=== PATIENT | female | born 1940 | race Caucasian/White ===

== ENCOUNTER 2020-01-31 11:05 | Emergency (ER) | payer MEDICARE, SELFPAY ==
--- NOTE | ~2020-01-31 | XR_ITS ---
EXAMINATION: XR hand RT min 3V, XR wrist RT min 3V EXAM DATE: 01/31/2020 11:57 (accession [id number]), 01/31/2020 11:58 (accession [id number]) INDICATION: Initial encounter following injury, with pain of the right hand and wrist. Fell one week ago, persistent pain. TECHNIQUE: Right hand frontal, lateral and oblique projections obtained and reviewed. Right wrist fro ntal, oblique and lateral projections obtained and reviewed. There is no prior study for comparison. FINDINGS: Acute closed posttraumatic fracture of the right radial distal metaphysis with mild comminu tion, mild displacement of a posterior fragment, may also involve the articular surface at the radioc arpal joint. Carpal bones and ulna are unremarkable. 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 IMPRESSION: Right distal radial metaphyseal fracture, mild comminution and possible extension into r adiocarpal joint Reviewed, dictated and finalized at location A. IMPRESSION: Right distal radial metaphyseal fracture, mild comminution and pos sible extension into radiocarpal joint
[2020-01-31 11:12] VITALS: BP 120/68; PULSE 68; RESP 14; TEMP 37.2; O2SAT 99
--- NOTE | 2020-01-31 11:22 | ED.UPPEXIN ---
HPI - Extremity Injury (Upper) General Chief Complaint: Extremity Injury, Upper Stated Complaint: right wrist injury due to fall Time Seen by Provider: 01/31/20 11:22 Source: patient, family and RN notes reviewed History of Present Illness HPI narrative: Patient is a 79-year-old female who presents the urgent care with complaints of right hand/wrist pain. Patient is present with her spouse. Patient has been on hospice for some time due to deteriorating congestive heart failure. Spouse states that her memory has been deteriorating for some time but does seem to have been worsened in the last week since the fall. States that she went to grab onto a curtain to support her weakness, which caused her to fall to her knees. Patient states she believes she slammed her arm on the floor or possible bookcase. Spouse and patient both deny any known head injury from the fall. Spouse states that hospice was aware of the fall and has increased her morphine which she believes increased the mental status deterioration. Patient did follow-up with her PCP just prior to arrival who wanted to do an outpatient x-ray on the right hand/wrist. However, spouse refused to take her to the hospital for the x-ray. Spouse states that she will return back on hospice as soon as the treatment of the right hand/wrist has been resolved. Patient is currently alert and oriented to person and events but is slightly confused on multiple questions. Spouse is supportive. No other acute complaints. Patient and spouse aware of the plan of care. Some parts of this dictation were generated by voice recognition software and may contain typographical and/or grammatical inaccuracies. Related Data Home Medications Medication Instructions Recorded Confirmed atorvastatin 03/24/19 carvedilol 03/24/19 diltiazem HCl [DILT-XR] PO 03/24/19 gabapentin 03/24/19 hydrocodone-acetaminophen 03/24/19 venlafaxine mg PO 03/24/19 furosemide 20 mg PO DAILY 01/31/20 01/31/20 morphine concentrate 5 mg PO Q1H PRN 01/31/20 01/31/20 phytonadione (vitamin K1) 2.5 mg PO ONCE 01/31/20 01/31/20 [Mephyton] potassium chloride 10 meq PO DAILY 01/31/20 01/31/20 Allergies Allergy/AdvReac Type Severity Reaction Status Date / Time tizanidine Allergy Unknown Unknown Verified 01/31/20 11:36 Review of Systems Review of Systems: Narrative: CONSTITUTIONAL: Denies fever, chills, or sweats. EYES: Denies visual changes, redness, or discharge. ENT: Denies rhinorrhea, congestion, sore throat, or otalgia. CARDIOVASCULAR: Denies chest pain, palpitations, or edema. RESPIRATORY: Denies cough or dyspnea. GASTROINTESTINAL: Denies abdominal pain, nausea, vomiting, or diarrhea. GENITOURINARY: Denies dysuria or hematuria. SKIN: Denies rash or itching. MUSCULOSKELETAL: Reports of right hand/wrist pain and excessive bruising NEUROLOGIC: Denies headache, numbness, or weakness. All other systems reviewed are negative, except as documented in HPI. PMFSH Comments At the time of my signature, I reviewed and agree with the nursing past medical, surgical, social, and family history. There is no relevant family history pertinent to the patient complaint. Exam Narrative: Exam Narrative: GENERAL: This is a well-nourished, well-developed patient, in no apparent distress. HEAD: normocephalic, atraumatic. EYES: PERRL. Sclera clear/white. Vision is grossly intact. EARS: External ears normal NOSE: External nose normal with no obvious nasal discharge, nares without redness, no rhinorrhea. THROAT: Mucous membranes moist NECK: Neck supple SKIN: 14 inches of discolored purple/yellow/blue ecchymosis extending from the right elbow to the right hand. Warm, intact with no suspicious lesions or rash, good texture and turgor. NEURO: awake, alert, and oriented to person, place; notable signs of dementia EXTREMITIES: Possible deformity noted to the radial aspect of the right hand/wrist with angulation; mild to moderate swelling of the
== END 2020-01-31 12:52 | disposition left against medical advice (07) ==
PROVIDERS: Emergency Provider Nurse Practitioner Family; PCP Family Medicine
DX: S52.501A Unspecified fracture of the lower end of right radius, initial encounter for closed fracture (principal); W19.XXXA Unspecified fall, initial encounter; I48.91 Unspecified atrial fibrillation; I25.10 Atherosclerotic heart disease of native coronary artery without angina pectoris; E78.00 Pure hypercholesterolemia, unspecified; F32.9 Major depressive disorder, single episode, unspecified; I50.9 Heart failure, unspecified
CPT/HCPCS: 29125; 73110; 73130; 99214; A4565; G0463

== ENCOUNTER 2020-02-10 13:10 | Emergency (ER) | payer MEDICARE, SELFPAY ==
[2020-02-10 13:15] VITALS: BP 92/60; PULSE 97; RESP 20; TEMP 36.3; O2SAT 95
--- NOTE | 2020-02-10 13:26 | ECG_ITS ---
Measurements Intervals [place] Rate: 91 P: CT: 0 QRS: 44 QRSD: 90 T: -55 QT: 381 QTc: 471 Interpretive Statements ATRIAL FIBRILLATION EARLY PRECORDIAL R/S TRANSITION T WAVE ABNORMALITY IN ANTERIOR LEADS- CONSIDER ISCHEMIA BASELINE ARTIFACT- II, III, AVL, AVF, V1-V2 ABNORMAL ECG Electronically Signed On 02-11-2020 8:36:03 CDT by Chris Acosta D.O.
--- NOTE | 2020-02-10 13:46 | ED.CHESTPAIN ---
HPI - Chest Pain General Chief Complaint: Chest Pain Stated Complaint: chest pain/shortness of breath/weakness Time Seen by Provider: 02/10/20 13:10 Source: patient, family and RN notes reviewed Mode of arrival: ambulatory Limitations: no limitations History of Present Illness HPI narrative: Patient presents today with complaining of a 3-day history of sternal chest pain and shortness of breath that has been worsening since onset. Associated symptoms include bilateral lower leg edema, weakness, decreased appetite since yesterday. Patient has history of A. fib and CHF. She was just discharged from hospice related to her CHF 11 days ago. Denies history of MT or CVA. She has been using her nitroglycerin without relief. She has been taking her prescribed opiate medication with relief of symptoms. Reports her chronic chest pain is an 12/09. Denies nausea, vomiting, diarrhea, lightheadedness or dizziness, vision changes, numbness or tingling in the extremities. MD complaint: chest pain Related Data Home Medications Medication Instructions Recorded Confirmed atorvastatin 40 mg PO DAILY 03/24/19 01/31/20 carvedilol 25 mg PO DAILY 03/24/19 01/31/20 diltiazem HCl [DILT-XR] 240 mg PO DAILY 03/24/19 01/31/20 gabapentin 300 mg PO TID 03/24/19 01/31/20 hydrocodone-acetaminophen 1 tablet PO Q6-8H 03/24/19 01/31/20 venlafaxine 75 mg PO DAILY 03/24/19 01/31/20 furosemide 20 mg PO DAILY 01/31/20 01/31/20 morphine concentrate 5 mg PO Q1H PRN 01/31/20 01/31/20 phytonadione (vitamin K1) 2.5 mg PO ONCE 01/31/20 01/31/20 [Mephyton] potassium chloride 10 meq PO DAILY 01/31/20 01/31/20 Allergies Allergy/AdvReac Type Severity Reaction Status Date / Time tizanidine Allergy Unknown Unknown Verified 01/31/20 11:36 Review of Systems Review of Systems: Narrative: CONSTITUTIONAL: Denies body aches, fever, chills, or sweats.+ Weakness EYES: Denies visual changes, redness, or discharge. ENT: Denies rhinorrhea, congestion, sore throat, or otalgia. CARDIOVASCULAR: Denies palpitations. + Pain, lower leg edema RESPIRATORY: Denies cough. + Shortness of breath GASTROINTESTINAL: Denies abdominal pain, nausea, vomiting, or diarrhea.+ Decreased appetite GENITOURINARY: Denies dysuria or hematuria. SKIN: Denies rash, itching, or wounds. MUSCULOSKELETAL: Denies back pain, joint pain, or myalgia. NEUROLOGIC: Denies headache, numbness, tingling. PSYCH: Denies depression or anxiety. [facility] Past Medical History Medical History (Updated 02/10/20 @ 16:53 by Sharda Baker, [employer], ) A-fib CHF (congestive heart failure) Hyperlipidemia Comments At time of signature, I have reviewed and agree with nursing past medical, surgical, social and family history unless otherwise noted. Please see nursing chart for further information. There is no relevant family history pertinent to the presenting complaint Exam Narrative: Exam Narrative: GENERAL: Chronically ill appearing, well-nourished. Arrived via wheelchair HEAD: Normocephalic, atraumatic. EYES: EOMI. No redness or drainage. Conjunctivae normal. ENT: Mucous membranes pink and moist. Nares clear. NECK: Normal AROM. Supple. No lymphadenopathy. CHEST: No respiratory distress. Clear to auscultation. Sternum is tender to palpation HEART: Irregularly irregular. No murmur appreciated. Normal peripheral pulses. 2+ pitting edema in the bilateral ankles. ABDOMEN: Soft, nontender, nondistended, normal active bowel sounds. MUSCULOSKELETAL: No bony tenderness. EXTREMITIES: Normal range of motion. SKIN: Warm, dry, no rash. Capillary refill normal. Normal skin turgor. NEURO: No focal deficits. Alert and oriented x3. PSYCH: Normal affect. No signs of depression or anxiety. Course Vital Signs Vital signs: Vital Signs Temperature 97.4 F L 02/10/20 13:15 Pulse Rate 97 02/10/20 13:15 Respiratory Rate 20 02/10/20 13:15 Blood Pressure 92/60 L 02/10/20 13:15 Pulse Oximetry 95 02/10/20 13:1
== END 2020-02-10 13:59 | disposition short-term general hospital (02) ==
PROVIDERS: Emergency Provider Nurse Practitioner; PCP Family Medicine
DX: R06.02 Shortness of breath (principal); R07.9 Chest pain, unspecified; I48.91 Unspecified atrial fibrillation; I50.9 Heart failure, unspecified; E78.5 Hyperlipidemia, unspecified
CPT/HCPCS: 93005; 99213; G0463